=== PATIENT | male | born 1950 | race Caucasian/White ===

== ENCOUNTER 2021-08-07 09:44 | Emergency (ER) | payer MEDICARE, OTHER ==
[2021-08-07 11:01] LABS: CORONAVIRUS COVID-19 NAA NEGATIVE (NEGATIVE)
--- NOTE | 2021-08-07 11:01 | EDM.PDOC ---
ED HPI GENERAL MEDICAL PROBLEM - General Chief Complaint: Respiratory Problem Stated Complaint: CHILLS SOB NUMBNESS TO HAND AND ARM Time Seen by Provider: 08/07/21 10:30 Source of Information: Reports: Patient History Limitations: Reports: No Limitations - History of Present Illness INITIAL COMMENTS - FREE TEXT/NARRATIVE: Patient is a 71-year-old male with a past medical history of COPD, prior stroke on Eliquis presenting with a chief complaint of right-sided chest pain. Patient states he has had several days of chills, mild cough and right-sided chest pain. He states the chest pain seems to occur with deep breathing. There is no radiation. He does have some mild shortness of breath which does not seem to be significantly worse. Patient reports 2 to 3 days ago he noticed some weakness of his right arm. He states he initially felt stiffness in her right shoulder however this seems to have progressed to his right hand. He reports that his hand is mildly uncomfortable but does not have any associated numbness. He reports weakness with making a fist as well as with raising his right shoulder. He states these are symptoms that are new. Otherwise, patient denies headache, difficulty speaking, or weakness in any other part of his body. Patient states he did receive 2 shots of the Pfizer vaccine. Second dose was approximately 6 months ago although patient cannot member exactly. He denies any prior history of pulmonary embolism, recent hospitalizations, lower extremity swelling, calf pain. Chest Pain Score (Numeric/FACES): 6 - Related Data Allergies Allergy/AdvReac Type Severity Reaction Status Date / Time No Known Allergies Allergy Verified 02/10/14 08:05 Home Meds: Home Meds Albuterol [Ventolin HFA] 2 puff INH Q4H PRN 08/07/21 [History] Apixaban [Eliquis] 5 mg PO DAILY 08/07/21 [History] Multivitamin [Multi-Vitamin Daily] 1 tab PO DAILY 08/07/21 [History] Simvastatin 20 mg PO DAILY 08/07/21 [History] amLODIPine [Norvasc] 5 mg PO DAILY 08/07/21 [History] amLODIPine [Norvasc] 5 mg PO DAILY #7 tab 08/07/21 [Rx] hydroCHLOROthiazide [Hydrochlorothiazide] 12.5 mg PO DAILY 08/07/21 [History] hydroCHLOROthiazide [Hydrochlorothiazide] 12.5 mg PO DAILY #7 tablet 08/07/21 [Rx] Past Medical History Cardiovascular History: Reports: High Cholesterol, Hypertension Respiratory History: Reports: COPD - Past Surgical History HEENT Surgical History: Reports: Oral Surgery Other HEENT Surgeries/Procedures: Teeth removed, wears top dentures Social & Family History - Family History Family Medical History: No Pertinent Family History - Tobacco Use Tobacco Use Status *Q: Current Every Day Tobacco User Years of Tobacco use: 40 Packs/Tins Daily: 0.5 - Caffeine Use Caffeine Use: Reports: Soda - Recreational Drug Use Recreational Drug Use: No ED ROS GENERAL - Review of Systems Review Of Systems: See Below Free Text/Narrative/Comment: In addition to that documented in the HPI above, the additional ROS was obtained: Constitutional: Denies fevers but positive for chills Eyes: Denies vision changes ENMT: Denies sore throat CV: Per HPI Resp: Per HPI GI: Denies vomiting or diarrhea : Denies painful urination MSK: Denies recent trauma Skin: Denies new rashes Neuro: Per HPI Endocrine: Denies unexpected weight loss Heme: Denies bleeding disorders ED EXAM, GENERAL - Physical Exam Exam: See Below Free Text/Narrative:: I have reviewed the triage vital signs Const: Well nourished, well developed, appears stated age Eyes: Pupils Equal and reactive to light bilaterally, no conjunctival injection HENT: No signs of trauma or swelling, Neck supple without meningismus CV: Regular Rate Rhythm, Warm, well-perfused extremities RESP: Unlabored respiratory effort GI: soft, non-tender, non-distended, no masses MSK: No gross deformities appreciated Skin: Warm, dry. No rashes Neuro: Alert and oriented x3, licensed therapist II-XII fully intact. Sensation of the right upper extremity and left upper extremity are entirely normal. He does have weakness in his right arm. This is with his hand, also with flexion and extension of his elbow. He also demonstrates mild weakness in abduction of his right shoulder. There is not appear to be any abnormalities with his skin or any associated swelling. Psych: Appropriate mood and affect. #1 Interpretation EKG Date: 08/07/21 Time: 10:46 Rhythm: NSR Rate (Beats/Min): 82 [place]: RAD-Right [place] Deviation P-Wave: Present QRS: Normal ST-T: Normal QT: Normal Comparison: NA - No Prior EKG EKG Interpretation Comments: Borderline EKG Course - Vital Signs Last Recorded V/S: Last Vital Signs Temp 36.9 C 08/07/21 09:56 Pulse 103 H 08/07/21 09:56 Resp 16 08/07/21 09:56 BP 100/79 08/07/21 09:56 Pulse Ox 100 08/07/21 09:56 - Orders/Labs/Meds Orders: Active Orders 24 hr Category Date Time Status Sodium Chloride 0.9% [Normal Saline] 1,000 ml Med 08/07/21 12:30 Active IV ONETIME Sodium Chloride 0.9% [Normal Saline] 100 ml Med 08/07/21 12:45 Active IV ASDIRECTED Sodium Chloride 0.9% [Saline Flush] Med 08/07/21 12:33 Active 10 ml FLUSH ONETIME PRN Medication Orders Sodium Chloride (Normal Saline) 1,000 mls @ 500 mls/hr IV ONETIME ONE Stop: 08/07/21 14:29 Last Admin: 08/07/21 12:48 Dose: 500 mls/hr Documented by: FIORELLA Sodium Chloride (Normal Saline) 100 mls @ 75 mls/hr IV ASDIRECTED SARAH Last Admin: 08/07/21 12:36 Dose: 75 mls/hr Documented by: DEENA Sodium Chloride (Sodium Chloride 0.9% 10 Ml Syringe) 10 ml FLUSH ONETIME PRN PRN Reason: IV FLUSH Last Admin: 08/07/21 12:36 Dose: 10 ml Documented by: DEENA Labs: Laboratory Tests 08/07/21 08/07/21 08/07/21 Range/Units 10:15 11:45 11:45 WBC 8.86 (4.23-9.07) K/mm3 RBC 4.32 L (4.63-6.08) M/mm3 Hgb 13.3 L (13.7-17.5) gm/dl Hct 40.9 (40.1-51.0) % MCV 94.7 H (79.0-92.2) fl MCH 30.8 (25.7-32.2) pg MCHC 32.5 (32.2-35.5) g/dl RDW Std Deviation 46.3 H (35.1-43.9) fL Plt Count 241 (163-337) K/mm3 MPV 9.1 L (9.4-12.3) fl Neut % (Auto) 77.0 H (34.0-67.9) % Lymph % (Auto) 9.1 L (21.8-53.1) % [place] % (Auto) 13.4 H (5.3-12.2) % Eos % (Auto) 0.2 L (0.8-7.0) Baso % (Auto) 0.2 (0.1-1.2) % Neut # (Auto) 6.81 H (1.78-5.38) K/mm3 Lymph # (Auto) 0.81 L (1.32-3.57) K/mm3 [place] # (Auto) 1.19 H (0.30-0.82) K/mm3 Eos # (Auto) 0.02 L (0.04-0.54) K/mm3 Baso # (Auto) 0.02 (0.01-0.08) K/mm3 PT 10.8 (9.7-12.0) SECONDS INR 0.97 D-Dimer, Quantitative 2.07 H (0.19-0.50) mg/L Sodium (136-145) mEq/L Potassium (3.5-5.1) mEq/L Chloride (98-107) mEq/L Carbon Dioxide (21-32) mEq/L Anion Gap (5-15) BUN (7-18) mg/dL Creatinine (0.7-1.3) mg/dL Est Cr Clr Drug Dosing mL/min Estimated GFR (MDRD) (>60) mL/min BUN/Creatinine Ratio (14-18) Glucose (70-99) mg/dL Calcium (8.5-10.1) mg/dL Total Bilirubin (0.2-1.0) mg/dL AST (15-37) U/L ALT (16-63) U/L Alkaline Phosphatase (46-116) U/L Troponin I (0.00-0.056) ng/mL Total Protein (6.4-8.2) g/dl Albumin (3.4-5.0) g/dl Globulin gm/dL Albumin/Globulin Ratio (1-2) Influenza Type A RNA Negative (NEGATIVE) RSV RNA (INAAT) Negative (NEGATIVE) Influenza Type B RNA Negative (NEGATIVE) SARS-CoV-2 RNA (JOSE) Negative (NEGATIVE) 08/07/21 Range/Units 11:45 WBC (4.23-9.07) K/mm3 RBC (4.63-6.08) M/mm3 Hgb (13.7-17.5) gm/dl Hct (40.1-51.0) % MCV (79.0-92.2) fl MCH (25.7-32.2) pg MCHC (32.2-35.5) g/dl RDW Std Deviation (35.1-43.9) fL Plt Count (163-337) K/mm3 MPV (9.4-12.3) fl Neut % (Auto) (34.0-67.9) % Lymph % (Auto) (21.8-53.1) % [place] % (Auto) (5.3-12.2) % Eos % (Auto) (0.8-7.0) Baso % (Auto) (0.1-1.2) % Neut # (Auto) (1.78-5.38) K/mm3 Lymph # (Auto) (1.32-3.57) K/mm3 [place] # (Auto) (0.30-0.82) K/mm3 Eos # (Auto) (0.04-0.54) K/mm3 Baso # (Auto) (0.01-0.08) K/mm3 PT (9.7-12.0) SECONDS INR D-Dimer, Quantitative (0.19-0.50) mg/L Sodium 135 L (136-145) mEq/L Potassium 3.8 (3.5-5.1) mEq/L Chloride 98 (98-107) mEq/L Carbon Dioxide 28 (21-32) mEq/L Anion Gap 12.8 (5-15) BUN 21 H (7-18) mg/dL Creatinine 1.2 (0.7-1.3) mg/dL Est Cr Clr Drug Dosing 45.06 mL/min Estimated GFR (MDRD) 60 (>60) mL/min BUN/Creatinine Ratio 17.5 (14-18) Glucose 100 H (70-99) mg/dL Calcium 10.3 H (8.5-10.1) mg/dL Total Bilirubin 0.8 (0.2-1.0) mg/dL AST 19 (15-37) U/L ALT 14 L (16-63) U/L Alkaline Phosphatase 105 (46-116) U/L Troponin I < 0.017 (0.00-0.056) ng/mL Total Protein 8.1 (6.4-8.2) g/dl Albumin 3.1 L (3.4-5.0) g/dl Globulin 5.0 gm/dL Albumin/Globulin Ratio 0.6 L (1-2) Influenza Type A RNA (NEGATIVE) RSV RNA (INAAT) (NEGATIVE) Influenza Type B RNA (NEGATIVE) SARS-CoV-2 RNA (JOSE) (NEGATIVE) Meds: Medications Generic Name Dose Route Start Last Admin Trade Name Freq PRN Reason Stop Dose Admin Sodium Chloride 1,000 mls @ 500 mls/hr 08/07/21 12:30 08/07/21 12:48 Normal Saline IV 08/07/21 14:29 500 mls/hr ONETIME ONE Administration Sodium Chloride 100 mls @ 75 mls/hr 08/07/21 12:45 08/07/21 12:36 Normal Saline IV 75 mls/hr ASDIRECTED SARAH Administration Sodium Chloride 10 ml 08/07/21 12:33 08/07/21 12:36 Sodium Chloride 0.9% 10 Ml Syringe FLUSH 10 ml ONETIME PRN Administration IV FLUSH Discontinued Medications Generic Name Dose Route Start Last Admin Trade Name Freq PRN Reason Stop Dose Admin Iopamidol 100 ml 08/07/21 12:33 08/07/21 12:36 Iopamidol 755 Mg/Ml 100 Ml Bottle IVPUSH 08/07/21 12:34 100 ml ONETIME ONE Administration Departure - Departure Time of Disposition: 13:25 Disposition: Home, Self-Care 01 Clinical Impression: Right-sided chest wall pain - Discharge Information Prescriptions: hydroCHLOROthiazide [Hydrochlorothiazide] 12.5 mg PO DAILY #7 tablet amLODIPine [Norvasc] 5 mg PO DAILY #7 tab Instructions: Pleurodynia Referrals: Lawrence Linares MD [Primary Care Provider] - Forms: ED Department Discharge Additional Instructions: 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 Take Tylenol every 6-8 hours for pain relief. Return to the emergency room for any other emergent concerns. Please follow-up with your primary care physician on August 15. Sepsis Event Note (ED) - Evaluation Sepsis Screening Result: No Definite Risk - Focused Exam Vital Signs: Vital Signs Temp Pulse Resp BP Pulse Ox 08/07/21 09:56 36.9 C 103 H 16 100/79 100 - My Orders Last 24 Hours: My Active Orders 08/07/21 12:30 Sodium Chloride 0.9% [Normal Saline] 1,000 ml IV ONETIME 08/07/21 12:33 Sodium Chloride 0.9% [Saline Flush] 10 ml FLUSH ONETIME PRN 08/07/21 12:45 Sodium Chloride 0.9% [Normal Saline] 100 ml IV ASDIRECTED - Assessment/Plan Last 24 Hours: My Active Orders 08/07/21 12:30 Sodium Chloride 0.9% [Normal Saline] 1,000 ml IV ONETIME 08/07/21 12:33 Sodium Chloride 0.9% [Saline Flush] 10 ml FLUSH ONETIME PRN 08/07/21 12:45 Sodium Chloride 0.9% [Normal Saline] 100 ml IV ASDIRECTED Assessment:: Patient is a 71-year-old male presenting to the emergency room with right-sided chest pain. Emergency department course was unremarkable. Patient has a friend that came in with him later on during the process. 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 Broad differential diagnosis considered for this patient include COVID-19, bacterial pneumonia, pulmonary embolism, stroke, musculoskeletal pain. Laboratory studies and imaging reviewed. No acute process noted. Slight elevation of BUN and patient was given IV fluids. Otherwise, no suspicion for ACS, PE, stroke. Patient will be discharged with outpatient follow-up. I did refill blood pressure medications for several days, due to the holiday.
--- NOTE | 2021-08-07 11:29 | CT ---
Head CT Technique: Multiple axial sections through the brain were obtained. Intravenous contrast was not utilized. Reconstructed coronal and sagittal images were obtained. Comparison: Prior head CT study of 06/27/13. Findings: Ventricles along with basal cisterns and sulci over the convexities are moderately prominent. Diminished density is scattered within the periventricular white matter compatible with small vessel ischemic demyelination change. Old area of encephalomalacia is seen within the left posterior cerebellum compatible with a small old infarct. No other abnormal parenchymal densities are seen. No evidence of intracranial hemorrhage is seen. No midline shift or mass-effect is seen. Bone window settings were reviewed. Visualized paranasal sinuses and mastoid sinuses show nothing acute. No acute calvarial abnormality is appreciated. Impression: 1. Diffuse senescent change as described above. 2. No acute intracranial abnormality is identified. 3. If patient's symptoms are acute, please consider brain MRI to further evaluate. Diagnostic code #3
--- NOTE | 2021-08-07 12:28 | MR ---
MRI brain Technique: T1 sagittal; T2, T2 FLAIR, T1 and diffusion axial; T1 FLAIR and gradient echo coronal images were obtained. Comparison: Prior head CT performed earlier on the same day (10:56 AM). Findings: Ventricles along with basal cisterns and sulci over the convexities are prominent. Normal signal void is seen within the major cerebral arteries within the skull base. Old infarct is seen within the left cerebellar hemisphere. Scattered areas of increased signal are seen within the periventricular and subcortical white matter most likely representing small vessel ischemic demyelination change. No other abnormal signal is seen within the brain parenchyma. There are no acute diffusion abnormalities being seen. Small retention cyst is noted within the right maxillary sinus measuring 1.1 cm. Impression: 1. Senescent change as noted above. 2. Small retention cyst within the right maxillary sinus. 3. No acute diffusion abnormalities are seen. No acute findings of stroke are seen. Diagnostic code #2
--- NOTE | 2021-08-07 12:28 | CR ---
Chest: PA view of the chest was obtained. Comparison: Prior chest CT of 08/08/15 and chest x-ray of 06/28/13. Heart size is within normal limits. Tortuous thoracic aorta is seen. Lungs are diffusely hyperinflated compatible with severe emphysematous change. Bony structure shows mild degenerative change within the spine. Prior aneurysm repair is seen within the abdominal aorta. No definite acute parenchymal change is seen. Impression: 1. Severe emphysematous change. 2. Other chronic findings as noted above. Nothing acute is definitely appreciated. Diagnostic code #2
[2021-08-07] MEDS ORDERED: Sodium Chloride 0.9% 1,000 ML IV ONE (12:30)
[2021-08-07] MEDS ORDERED: Sodium Chloride 0.9% 10 ML Syringe FLUSH PRN (12:33)
[2021-08-07] MEDS ORDERED: Iopamidol 755 Mg/ML 100 ML Bottle IVPUSH ONE (12:33)
[2021-08-07] MEDS ORDERED: Sodium Chloride 0.9% 100 ML IV SCH (12:45)
--- NOTE | 2021-08-07 13:11 | CT ---
CT pulmonary angiogram Technique: Multiple axial sections were obtained through the chest. Intravenous contrast was utilized. Study has been performed as a pulmonary angiogram protocol. Findings: Pulmonary arteries are well opacified. No filling defects are seen to indicate pulmonary embolism. Ascending aorta is aneurysmal measuring 4.5 cm in AP dimension which is stable from prior chest CT. Mediastinum shows no adenopathy. Mild coronary artery calcification is seen. Atherosclerotic change is noted within the descending aorta. No pericardial thickening is seen. Visualized upper abdominal structures show a stent within an abdominal aortic aneurysm. No other acute finding is seen within the upper abdomen. Lung window settings were reviewed. Severe emphysematous change is seen. There is a nodule being seen at the junction of the major fissure within the right lower lung. This nodule measures about 1.0 x 0.8 cm and on prior study measures about 0.8 cm x 0.4 cm. This nodule has therefore increased in size. Slight scarring is seen within both lung apices. No acute parenchymal change is seen within either lung. Bone window settings were reviewed which show mild degenerative change within the thoracic spine. No acute osseous finding is seen. Impression: 1. No findings of pulmonary embolism. 2. 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 3. Severe emphysematous change is seen. 4. Enlarging nodule within the right lower lung next to the major fissure which currently measures 1.0 x 0.8 cm and on prior study measures 0.8 x 0.4 cm. Uncertain if this represents increase in size of a benign nodule or represents a slowly growing malignancy. 5. Other chronic findings as noted above. Diagnostic code #3
== END 2021-08-07 13:50 | disposition home or self-care (01) ==
LOC: JD.ED 09:44
DX: R07.89 Other chest pain (principal); J44.9 Chronic obstructive pulmonary disease, unspecified; E78.00 Pure hypercholesterolemia, unspecified; I10 Essential (primary) hypertension; Z79.01 Long term (current) use of anticoagulants; Z72.0 Tobacco use; Z79.899 Other long term (current) drug therapy; Z20.822 Contact with and (suspected) exposure to COVID-19
CPT/HCPCS: 0241U; 36415; 70450; 70551; 71045; 71275; 80053; 84484; 85025; 85379; 85610; 93005; 99285; J7030; Q9967

== ENCOUNTER 2021-12-11 09:16 | Emergency (ER) | payer MEDICARE, OTHER ==
[2021-12-11] MEDS ORDERED: Aspirin 81 MG Tab.Chew PO ONE (10:28)
[2021-12-11] MEDS ORDERED: Iopamidol 755 Mg/ML 100 ML Bottle IVPUSH ONE (11:08)
[2021-12-11] MEDS: Sodium Chloride 0.9% 10 ML Syringe FLUSH PRN ×2 (11:15→11:18)
[2021-12-11] MEDS ORDERED: Sodium Chloride 0.9% 100 ML IV SCH (11:15)
[2021-12-11] MEDS ORDERED: Potassium Chloride 20 MEQ Tab.ER PO ONE (12:15)
[2021-12-11] MEDS ORDERED: Heparin Sodium 5,000 Units/ML Vial IVPUSH ONE (12:21)
[2021-12-11] MEDS ORDERED: Heparin Sodium/D5W 25,000 UNITS/500 ML BAG IV SCH (12:30)
== END 2021-12-11 14:36 ==
LOC: JD.ED 09:16
DX: I24.9 Acute ischemic heart disease, unspecified (principal); J44.9 Chronic obstructive pulmonary disease, unspecified; E78.00 Pure hypercholesterolemia, unspecified; I10 Essential (primary) hypertension; Z79.01 Long term (current) use of anticoagulants; Z86.73 Personal history of transient ischemic attack (TIA), and cerebral infarction without residual deficits; Z72.0 Tobacco use; Z20.822 Contact with and (suspected) exposure to COVID-19
CPT/HCPCS: 36415; 71045; 71270; 74178; 80053; 83735; 83880; 84484; 85025; 85379; 85610; 85730; 93005; 96365; 96366; 99285; A9270; J1644; J3490; Q9967; U0002

== ENCOUNTER 2023-10-05 11:51 | Emergency (ER) | payer MEDICARE, OTHER ==
[2023-10-05] MEDS: Sodium Chloride 0.9% 1,000 ML ONE (12:06)
[2023-10-05 12:18] LABS: BASOPHILS PERCENT AUTO 0.1 % (0.0-1.0); HEMATOCRIT 48.4 % (42.0-52.0); IMMATURE GRAN ABSOLUTE AUTO 0.05 K/mm3 (0.00-0.05); IMMATURE GRAN PERCENT AUTO 0.4 % (0.0-0.4); LYMPHOCYTES ABSOLUTE AUTO 0.6 K/mm3 (1.0-4.8); MEAN CORPUSCULAR HEMOGLOBIN 30.1 pg (28.0-32.0); MEAN CORPUSCULAR HGB CONC 33.1 g/dl (32.0-36.0); MEAN CORPUSCULAR VOLUME 91.1 fl (83.0-99.0); MEAN PLATELET VOLUME 9.6 fl (9.4-12.4); MONOCYTES ABSOLUTE AUTO 1.4 K/mm3 (0.0-0.8); NEUTROPHILS ABSOLUTE AUTO 10.4 K/mm3 (1.8-7.7); NEUTROPHILS PERCENT AUTO 83.5 % (41.0-71.0); PLATELET COUNT,PLT 212 K/mm3 (150-400); RED BLOOD CELL COUNT 5.31 M/mm3 (4.52-5.90); WHITE BLOOD CELL COUNT,WBC 12.43 K/mm3 (3.9-11.3)
[2023-10-05 12:36] LABS: INR 1.02; PROTHROMBIN TIME 10.9 SECONDS (9.7-12.0)
[2023-10-05 12:38] LABS: PTT,PARTIAL THROMBOPLSTIN TIME 24.1 SECONDS (21.7-31.4)
[2023-10-05] MEDS: Sodium Chloride 0.9% 1,000 ML IV ONE (12:45)
[2023-10-05 12:46] LABS: A/G RATIO 0.7 (1-2); ALBUMIN 3.6 g/dl (3.4-5.0); ANION GAP 17.9 (5-15); BILIRUBIN TOTAL 2.1 mg/dL (0.2-1.0); BUN/CREATININE RATIO 40.7 (14-18); CALCIUM 11.1 mg/dL (8.5-10.1); CREATININE 1.5 mg/dL (0.7-1.3); EST CRCL DRUG DOSING (CG) 27.41 mL/min; POTASSIUM,K 4.9 mEq/L (3.5-5.1); PROTEIN TOTAL,TP 8.9 g/dl (6.4-8.2)
[2023-10-05 12:53] LABS: D-DIMER QUANTITATIVE 7.56 mg/L (0.19-0.50)
[2023-10-05] MEDS ORDERED: Sodium Chloride 0.9% 1,000 ML IV SCH (13:00)
[2023-10-05 13:10] LABS: APPEARANCE,URINE CLEAR (Clear); BILIRUBIN,URINE 2+ (Negative); COLOR,URINE DARK YELLOW (Yellow); GLUCOSE,URINE NEGATIVE (Negative); KETONES,URINE 1+ (Negative); LEUKOCYTE ESTERASE,URINE NEGATIVE (Negative); NITRITE,URINE NEGATIVE (Negative); OCCULT BLOOD,URINE 2+ (Negative); PH,URINE 5.5 (5.0-8.0); PROTEIN,URINE 1+ (Negative)
[2023-10-05 13:35] LABS: WBC,URINE 0-5 /hpf (0-5)
[2023-10-05 13:36] LABS: BACTERIA,URINE RARE /hpf (FEW); EPITHELIAL CELLS,URINE 0-5 /hpf (0-5); MUCUS,URINE NOT SEEN /hpf (FEW)
[2023-10-05] MEDS: Sodium Chloride 0.9% 100 ML IV SCH (13:44)
[2023-10-05] MEDS: Iopamidol 755 Mg/ML 100 ML Bottle IVPUSH ONE ×2 (13:44)
[2023-10-05] MEDS: Sodium Chloride 0.9% 10 ML Syringe FLUSH PRN (13:44)
[2023-10-05 14:28] LABS: LACTIC ACID 2.4 mmol/L (0.4-2.0)
== END 2023-10-05 16:18 ==
LOC: JD.ED 11:51
DX: I63.9 Cerebral infarction, unspecified (principal); M62.82 Rhabdomyolysis; I50.9 Heart failure, unspecified; L89.223 Pressure ulcer of left hip, stage 3; E86.0 Dehydration; R79.89 Other specified abnormal findings of blood chemistry; I10 Essential (primary) hypertension; J44.9 Chronic obstructive pulmonary disease, unspecified; E78.00 Pure hypercholesterolemia, unspecified; Z79.899 Other long term (current) drug therapy; W19.XXXA Unspecified fall, initial encounter
CPT/HCPCS: 36415; 70450; 70496; 70498; 71045; 71275; 80053; 81001; 82550; 82947; 83605; 83690; 83880; 84484; 85025; 85379; 85610; 85730; 87040; 93005; 96360; 99285; C1758; J3490; J7030; Q9967